=== PATIENT | female | born 1960 ===

== ENCOUNTER 2024-03-10 08:42 | Day surgery (SDC) | payer BC ==
[~2024-03-10 08:42] MED LIST: Sodium Chloride 0.9% 10 ML Syringe FLUSH PRN; Sodium Chloride 0.9% 2.5 ML Syringe FLUSH PRN; Sodium Chloride 0.9% 20 ML SDV IV PRN
[2024-03-10] MEDS: Lactated Ringers 1,000 ML IV SCH (10:07)
[2024-03-10] MEDS ORDERED: dexmedeTOMIDine HCl 200 MCG/2 ML SDV ONE (10:26)
[2024-03-10] MEDS ORDERED: Water For Injection, Sterile 20 ML ONE (10:26)
[2024-03-10] MEDS ORDERED: propofoL 50 ML ONE (10:33)
[2024-03-10 12:41] VITALS: BP 131/63; PULSE 63
== END 2024-03-10 11:43 | disposition home or self-care (01) ==
LOC: MW.SDS 08:42
PROVIDERS: ATTEND Surgery
DX: K20.0 Eosinophilic esophagitis (principal); K31.7 Polyp of stomach and duodenum; K44.9 Diaphragmatic hernia without obstruction or gangrene; K21.9 Gastro-esophageal reflux disease without esophagitis; Z79.899 Other long term (current) drug therapy
CPT/HCPCS: 43239; 45385; J2704; J7120; 00813; J3490